=== PATIENT | female | born 1995 | race Caucasian/White ===

== ENCOUNTER 2020-04-03 12:23 | Outpatient (CLI) | payer SELFPAY ==
[2020-04-03 14:00] VITALS: BP 122/64; PULSE 87
[2020-04-03 14:01] LABS: Basophils Absolute Auto 0.1 K/mm3 (0.0-0.1); Basophils Percent Auto 0.8 % (0.2-1.2); Eosinophils Absolute Auto 0.1 K/mm3 (0-0.3); Eosinophils Percent Auto 0.8 % (0-4.4); Hematocrit 37.4 % (37.0-47.0); Hemoglobin 12.5 g/dL (12.0-15.0); Immature Granulocyte Absolute 0.46 K/mm3 (0.00-0.031); Immature Granulocyte Percent A 3.2 % (0-0.5); Lymphocytes Absolute Auto 1.66 K/mm3 (0.9-3.2); Lymphocytes Percent Auto 11.6 % (18.3-44.2); Mean Corpuscular HGB Conc 33.4 g/dl (32-36); Mean Corpuscular Hemoglobin 30.4 pg (26-34); Mean Platelet Volume 9.7 fl (7.4-10.4); Monocytes Absolute Auto 0.7 K/mm3 (0.1-0.6); Monocytes Percent Auto 5.1 % (2.6-8.5); Neutrophils Absolute Auto 11.2 K/mm3 (1.3-6.7); Neutrophils Percent Auto 78.5 % (45.5-73.1); Platelet Count Result 304 k/mm3 (150-375); Red Blood Count 4.11 M/mm3 (4.2-5.4); Red Cell Distribution Width 12.4 % (11.5-14.5); White Blood Count 14.3 K/mm3 (4.5-10.0)
[2020-04-03 14:09] LABS: Creatinine Urine 63.8 mg/dL; Total Protein Urine Random 15 mg/dL
[2020-04-03 14:13] LABS: Alanine Aminotransferase 12 U/L (4-35); Albumin Level 3.8 g/dL (3.5-5.1); Alkaline Phosphatase 128 U/L (38-126); Anion Gap 8 mmol/L (8-16); Aspartate Amino Transferase 15 U/L (14-36); Bilirubin,Total 0.3 mg/dL (0.2-1.3); Blood Urea Nitrogen 6 mg/dL (7-17); Calcium 9.6 mg/dL (8.4-10.2); Carbon Dioxide 27 mmol/L (22-30); Chloride 102 mmol/L (98-107); Estimated Glomerular Filt Rate > 60; Glucose 82 mg/dL (65-105); Sodium 137 mmol/L (137-145); Uric Acid 4.3 mg/dL (2.5-7.5)
[2020-04-03 14:15] VITALS: BP 124/67; PULSE 81
[2020-04-03 14:16] LABS: Add Urine Microscopic? YES; Appearance Urine Cloudy (Clear); Bacteria Urine 2+ /hpf; Bilirubin Urine Negative (Negative); Blood Urine Negative (Negative); Color Urine Yellow (Yellow); Glucose Urine UA Negative (Negative); Ketones Urine Negative (Negative); Leukocyte Esterase Ur 1+ LEU/UL (NEGATIVE); Mucus Urine Rare /lpf; Nitrate Urine Negative (Negative); Protein Urine Negative (Negative); RBC Urine 0-2 /hpf (0-2); Squamous Epithelial Cell Urine Few /hpf (Few); Urobilinogen Urine Negative mg/dL (<2.0); WBC Urine 0-3 /hpf (0-3)
[2020-04-03 14:30] VITALS: BP 125/65; PULSE 83
[2020-04-03 14:45] VITALS: BP 127/57; PULSE 83
--- NOTE | 2020-04-03 14:55 | PC.NURSE ---
Called VENKAT Cabrera with pt status. LAb results and BPs given. Tracing reactive. Informed of headache for 5 days. Significant other exposed to COVID, but not tested. Significant other has no symptoms. Pt states that she does not feel that she needs to be COVID tested. Pt may be D/C'd home.
[2020-04-17 10:45] VITALS: BP 116/78; PULSE 80
== END 2020-04-03 15:03 | disposition home or self-care (01) ==
LOC: ANHOBOP 13:47 → ANHOBPP 04-17 10:40
PROVIDERS: Visit Provider Obstetrics & Gynecology
DX: R51.9 Headache, unspecified (principal)
CPT/HCPCS: 36415; 59025; 80053; 81001; 82570; 84156; 84550; 85025; 87086; 87088; 99199

== ENCOUNTER 2020-04-13 16:01 | Outpatient (CLI) | payer OTHER, SELFPAY ==
[2020-04-13 16:46] VITALS: BP 138/73; PULSE 83
[2020-04-13 17:00] VITALS: BP 134/73; PULSE 82
[2020-04-13 17:16] VITALS: BP 128/71; PULSE 73
[2020-04-13 17:19] LABS: Basophils Absolute Auto 0.1 K/mm3 (0.0-0.1); Basophils Percent Auto 0.5 % (0.2-1.2); Eosinophils Absolute Auto 0.1 K/mm3 (0-0.3); Eosinophils Percent Auto 0.6 % (0-4.4); Hematocrit 34.2 % (37.0-47.0); Hemoglobin 11.9 g/dL (12.0-15.0); Immature Granulocyte Absolute 0.32 K/mm3 (0.00-0.031); Immature Granulocyte Percent A 2.5 % (0-0.5); Lymphocytes Absolute Auto 1.47 K/mm3 (0.9-3.2); Lymphocytes Percent Auto 11.4 % (18.3-44.2); Mean Corpuscular HGB Conc 34.8 g/dl (32-36); Mean Corpuscular Hemoglobin 31.1 pg (26-34); Mean Corpuscular Volume 89.3 fl (80-100); Mean Platelet Volume 9.7 fl (7.4-10.4); Monocytes Absolute Auto 0.7 K/mm3 (0.1-0.6); Monocytes Percent Auto 5.4 % (2.6-8.5); Neutrophils Absolute Auto 10.3 K/mm3 (1.3-6.7); Neutrophils Percent Auto 79.6 % (45.5-73.1); Platelet Count Result 291 k/mm3 (150-375); Red Blood Count 3.83 M/mm3 (4.2-5.4); Red Cell Distribution Width 12.5 % (11.5-14.5); White Blood Count 12.9 K/mm3 (4.5-10.0)
[2020-04-13 17:30] VITALS: BP 127/72; PULSE 82
[2020-04-13 17:32] LABS: Alanine Aminotransferase 12 U/L (4-35); Albumin Level 3.5 g/dL (3.5-5.1); Alkaline Phosphatase 127 U/L (38-126); Anion Gap 8 mmol/L (8-16); Aspartate Amino Transferase 14 U/L (14-36); Bilirubin,Total 0.2 mg/dL (0.2-1.3); Blood Urea Nitrogen 6 mg/dL (7-17); Calcium 9.6 mg/dL (8.4-10.2); Carbon Dioxide 25 mmol/L (22-30); Chloride 104 mmol/L (98-107); Estimated Glomerular Filt Rate > 60; Glucose 95 mg/dL (65-105); Potassium 3.8 mmol/L (3.4-5.0); Sodium 137 mmol/L (137-145); Uric Acid 4.5 mg/dL (2.5-7.5)
--- NOTE | 2020-04-13 17:37 | PC.NURSE ---
Called Brandi Greene CNM with lab results and BPs. October D/C home.
== END 2020-04-13 17:40 | disposition home or self-care (01) ==
LOC: ANHOBOP 16:15 → ANHOBPP 16:16
PROVIDERS: Advanced Practice Midwife; Visit Provider Obstetrics & Gynecology
DX: O13.9 Gestational [pregnancy-induced] hypertension without significant proteinuria, unspecified trimester (principal); Z3A.00 Weeks of gestation of pregnancy not specified
CPT/HCPCS: 36415; 59025; 80053; 84550; 85025; 99199

== ENCOUNTER 2020-04-17 06:29 | Inpatient (IN) | payer OTHER, SELFPAY ==
[2020-04-17] VITALS (233 sets, daily range): BP systolic 99–153; BP diastolic 46–97; PULSE 72–254; RESP 18–20; TEMP 36.4–38; O2SAT 94–100; BMI 41.4
[2020-04-17] MEDS: LACTATED RINGERS 1,000 ML 125 ML IV CONT ×4 (07:06→20:56)
[2020-04-17] MEDS: OXYTOCIN 30 UNITS/NS 500 ML 30 UNITS/500 ML BAG IV CONT (07:07)
[2020-04-17 07:09] LABS: Basophils Absolute Auto 0.1 K/mm3 (0.0-0.1); Basophils Percent Auto 0.5 % (0.2-1.2); Eosinophils Absolute Auto 0.1 K/mm3 (0-0.3); Eosinophils Percent Auto 0.9 % (0-4.4); Hematocrit 35.1 % (37.0-47.0); Hemoglobin 12.2 g/dL (12.0-15.0); Immature Granulocyte Absolute 0.43 K/mm3 (0.00-0.031); Immature Granulocyte Percent A 2.9 % (0-0.5); Lymphocytes Absolute Auto 2.05 K/mm3 (0.9-3.2); Mean Corpuscular HGB Conc 34.8 g/dl (32-36); Mean Corpuscular Hemoglobin 30.5 pg (26-34); Mean Corpuscular Volume 87.8 fl (80-100); Mean Platelet Volume 9.6 fl (7.4-10.4); Monocytes Absolute Auto 0.8 K/mm3 (0.1-0.6); Monocytes Percent Auto 5.2 % (2.6-8.5); Neutrophils Absolute Auto 11.2 K/mm3 (1.3-6.7); Neutrophils Percent Auto 76.5 % (45.5-73.1); Platelet Count Result 294 k/mm3 (150-375); Red Cell Distribution Width 12.6 % (11.5-14.5); White Blood Count 14.6 K/mm3 (4.5-10.0)
--- NOTE | 2020-04-17 07:22 | LDADM ---
This patient, Geronimo Cavanaugh, was admitted to Labor/Delivery/Recovery 103 on 04/17/20 at 06:29. Plans for labor, pain management and were discussed with patient. Patient/family oriented to hospital policies and general routines including ID bracelet, bed and alarms, visiting hours, pain management, procedures, bathroom and other care routines, personal items, smoking policy, room service/diet and guest tray routines, security routines, and visiting hours. Patient/Family are encouraged to report perceived risks to care and to ask questions if they do not understand what they are told or what they should do. See OBIX for further documentation.
--- NOTE | 2020-04-17 07:29 | WPDOBADMIT ---
Obstetrics - Admit Note Admission Note: record reviewed. No pertinent additions to the history and/or any subsequent changes in the physical findings that are not consistent with the expected course of the were found. term gestation, here for induction of labor, sve 250/-3 arom minimal amount of clear odorless fluid Additions to the history and/or subsequent changes in the physical findings follow. None.
--- NOTE | 2020-04-17 11:57 | WPDANESEPPF ---
Anes - Initial Pre Proc Eval Date/Time: 04/17/20 11:57 Surgeon: Isha Aldana MD Pre Op Diagnosis: induction Patient Data Age: 24 Gender: F Height: 1.65 m Weight: 113 kg Last Vital Signs Temp 36.8 C 04/17/20 11:00 Pulse 75 04/17/20 11:45 BP 143/58 H 04/17/20 11:45 Pulse Ox 100 04/17/20 11:55 Allergies Allergy/AdvReac Type Severity Reaction Status Date / Time Sulfa (Sulfonamide Allergy Unknown Blisters Verified 03/22/20 15:40 Antibiotics) adhesive tape Allergy Blister Verified 03/22/20 15:40 Home Medications Medication Instructions Recorded Confirmed Type PNV cmb#95-ferrous fumarate-FA 1 tablet PO DAILY 03/22/20 03/22/20 History [] iyooqammkq-tduumrmwwrhfu-kozn 1 cap PO Q6H PRN 03/22/20 03/22/20 History cyclobenzaprine 5 mg PO HS PRN 03/22/20 03/22/20 History levothyroxine 75 mcg PO DAILY 03/22/20 03/22/20 History triamcinolone-emollient comb45 applic TOPICAL 03/22/20 History Laboratory Tests 04/17/20 04/17/20 04/17/20 07:02 07:02 07:02 WBC 14.6 K/mm3 H K/mm3 (4.5-10.0) RBC 4.00 M/mm3 L M/mm3 (4.2-5.4) Hgb 12.2 g/dL g/dL (12.0-15.0) Hct 35.1 % L % (37.0-47.0) MCV 87.8 fl fl (80-100) MCH 30.5 pg pg (26-34) MCHC 34.8 g/dl g/dl (32-36) RDW 12.6 % % (11.5-14.5) Plt Count 294 k/mm3 k/mm3 (150-375) MPV 9.6 fl fl (7.4-10.4) Immature Gran % (Auto) 2.9 % H % (0-0.5) Neut % (Auto) 76.5 % H % (45.5-73.1) Lymph % (Auto) 14.0 % L % (18.3-44.2) [place] % (Auto) 5.2 % % (2.6-8.5) Eos % (Auto) 0.9 % % (0-4.4) Baso % (Auto) 0.5 % % (0.2-1.2) Lymph # (Auto) 2.05 K/mm3 K/mm3 (0.9-3.2) [place] # (Auto) 0.8 K/mm3 H K/mm3 (0.1-0.6) Eos # (Auto) 0.1 K/mm3 K/mm3 (0-0.3) Baso # (Auto) 0.1 K/mm3 K/mm3 (0.0-0.1) Abs Immat Gran (auto) 0.43 K/mm3 H K/mm3 (0.00-0.031) Absolute Neuts (auto) 11.2 K/mm3 H K/mm3 (1.3-6.7) Absolute Nucleated RBC 0.0 K/mm3 K/mm3 (0.0-0.012) Nucleated RBC % 0.0 % % (0.0-0.2) RPR Pending Blood Type B Positive Antibody Screen Negative Patient hx anesthesia problems: none Family hx anesthesia problems: none PMFSH Past Medical History Medical History (Updated 04/17/20 @ 11:57 by Real Berumen MD) Obesity Family History Family History (Updated 03/22/20 @ 15:44 by Jayna Guido RN) Mother Thyroid disease Hypertension Father Heart attack Social History Social History Smoking status: Never smoker Second hand tobacco smoke exposure: No Substance use: never Gender identity (if verbalized by the patient): Female Spiritual care concerns: No Anes - Eval Final PreProcedure Day of Procedure 04/17/20 11:57 Patient weight: obese Heart: regular rate and rhythm Lungs: clear to auscultation and normal air movement Airway: Mallampati scale class II Neurological: alert and oriented Last oral intake: >/= 8 hours ASA classification: II Emergent: no Anesthetic plan: proceed Anesthesia type and monitoring: regional epidural Informed Consent: The patient's anesthetic plan and its attendant risks and benefits were discussed with the patient/family/POA. Questions were solicited and answers provided to the satisfaction of the patient/family/POA.
[2020-04-17] MEDS: AMPICILLIN 2 GM/NS 100 ML 2 GM/100 ML BAG IVPB (19:49)
[2020-04-17] MEDS: SODIUM CHLORIDE 0.9% IV 300 ML 600 ML I-UTERINE (20:43)
[2020-04-17] MEDS: AMPICILLIN 1 GM/NS 50 ML 1 GM/50 ML BAG IVPB (23:47)
[2020-04-18] VITALS (52 sets, daily range): BP systolic 120–156; BP diastolic 42–112; PULSE 80–152; RESP 16–20; TEMP 36.6–37.7; O2SAT 92–100
--- NOTE | 2020-04-18 01:50 | PM.OBPRVD ---
OB - Delivery Note Procedure Delivery date: 04/18/20 Intrapartal events: Febrile Induction method: AROM and per pitocin protocol Delivery monitor: external FHT and internal uterine Route of delivery: Episiotomy description: None Laceration Description: Perineal - 2nd Degree Delivery repair: vicryl Specimen: No Estimated blood loss (mL): 315 Anesthesia type: Epidural Disposition: other () [place] Baby Date of : 04/18/20 Time of : 01:18 Weeks of gestation at delivery: 40 Infant gender: Male presentation: vertex position: Left Occiput Anterior Placenta delivery description: Spontaneous cord vessel description: 3 Vessels, Nuchal Cord, Loose, Reduced, Clamped/Cut and Delayed Cord Clamping score one minute: 8 score five minutes: 9 Narrative: Mother and baby in stable condition and skin to skin.
[2020-04-18] MEDS: OXYTOCIN 30 UNITS/NS 500 ML 30 UNITS/500 ML BAG 125 UNITS IV CONT (01:51)
[2020-04-18] MEDS: BENZOCAINE 20% AER SPR (*SP) 56 GM CAN 1 SPRAY TOPICAL (03:38)
[2020-04-18] MEDS: WITCH HAZEL 40 PADS 1 PAD TOPICAL (03:38)
[2020-04-18] MEDS: ACETAMINOPHEN 325 MG TABLET 650 MG PO (05:08)
--- NOTE | 2020-04-18 05:11 | PC.NURSE ---
This patient, Geronimo Cavanaugh, was received from Labor & Delivery on 04/18/20 at 0441. Patient/family oriented to unit policies and routines
[2020-04-18] MEDS: IBUPROFEN 600 MG TABLET PO ×2 (06:55→14:37)
[2020-04-18 07:35] LABS: Rapid Plasma Reagin Non-Reactive (NonReactive)
[2020-04-18] MEDS: MULTIVIT/MIN/PREN/FOL AC/IRON TABLET 1 TAB PO (09:21)
[2020-04-18] MEDS: DOCUSATE SODIUM 100 MG CAPSULE PO (09:22)
--- NOTE | 2020-04-18 09:45 | PC.NURSE ---
Consulted with patient, mother reports slight discomfort with feeding. Both nipples are tender, skin is reddened on left. Nipple care reviewed. Reviewed feeding cues, frequencies, duration of feedings, feeding elimination flow sheet, and signs of adequate intake. Demonstrated stimulation techniques to wake for feeding. Assisted with to breast. Reviewed positioning/alignment in cross cradle, holding breast in U hold and guided asymmetrical latch on. was able to latch correctly. nursed eagerly, with steady draws and frequent swallowing noted. Reviewed signs of a correct latch, effective nursing and suck swallow ratio. Infant was able to maintain latch without discomfort to mother. Mother reports infant has not been latched this deeply. Suggested mother stimulate while feeding to keep infant awake and nursing effectively for increased intake and to assist with maintaining deep latch. Instructed mother to call out for RN assistance if she is unable to latch infant for feeding or she has discomfort with nursing. Instructed feeding should be initiated three hours from start of l
--- NOTE | 2020-04-18 13:40 | PC.NURSE ---
Mother called out for assist with feeding. infant eagerly fed for first feeding. Reviewed feeding cues, frequencies, duration of feedings, feeding elimination flow sheet, and signs of adequate intake. Demonstrated stimulation techniques to wake for feeding. Assisted with to breast. Reviewed positioning/alignment in cross cradle, holding breast in U and guided asymmetrical latch on. Infant was able to latch correctly. nursed eagerly, with steady draws and frequent swallowing noted. Reviewed signs of a correct latch, effective nursing and suck swallow ratio. Infant was able to maintain latch without discomfort to mother. Nipple care reviewed. Suggested mother stimulate infant while feeding to keep awake and nursing effectively for increased intake and to assist with maintaining deep latch. Instructed mother to call out for RN assistance if she is unable to latch for feeding or she has discomfort with nursing. Instructed feeding should be initiated three hours from start of last feeding or if feeding cues are noted before. Mother voiced understanding of information shared.
[2020-04-19] MEDS: IBUPROFEN 600 MG TABLET PO ×2 (00:52→08:41)
[2020-04-19 05:52] LABS: Hematocrit 28.5 % (37.0-47.0); Hemoglobin 9.6 g/dL (12.0-15.0)
--- NOTE | 2020-04-19 07:55 | PM.OBPNVD ---
OB - PN: Subj Subjective Date/time seen: 04/19/20 07:55 Patient comments: no complaints baby status: doing well OB - PN: Obj Data Labs CBC & Chem 7: 04/19/20 05:40 Labs: Laboratory Results - last 24 hr 04/19/20 05:40 Hgb 9.6 L Hct 28.5 L OB - PN A/P Plan day: 1 Plan: routine care and discharge home (RTC 4 weeks) Time Spent With Patient Time: Total time spent is greater than 50% in coordination of care (as documented) at patient's floor/unit and/or counseling patient: Time with patient: less than 15 minutes Review of Systems Review of Systems: All systems reviewed & are unremarkable except as noted in HPI and below Exam Narrative: Exam Narrative: Fundus firm and vaginal flow controlled. No lower ext redness, warmth, or edema. Negative homans. Const: General: comfortable Chest: Breast/axilla inspection: normal inspection of the breasts Resp: Effort & Inspection: normal respiratory effort Cardio: Rate: regular rate GI: GI Palp: Yes Soft to palpation Psych: Appearance: grossly normal Affect: normal affect Attitude: cooperative Thought content: Yes Normal thought content present Judgement: Good judgement present (Psych)
--- NOTE | 2020-04-19 07:59 | P.DS_ITS ---
DS: Admitting Diagnosis Admitting Diagnosis Admitting Diagnosis: induction DS: Discharge Diagnosis Discharge Diagnosis (1) Vaginal delivery: Code(s): O80 - Encounter for full-term uncomplicated delivery Status: Acute OB - DS: Summary OB Procedures : None OB Procedures Intrapartum: Spontaneous Vag Delivery OB Procedures: : None Time Spent with Patient Time attestation: Total time spent providing and/or coordinating discharge services: DS: Data Data Completed and Pending Pending studies at discharge: Pending at discharge 04/18/20 01:27 Surgical [PTH] Routine Labs on day of discharge: Labs from last 24 hours 04/19/20 05:40 Hgb 9.6 L Hct 28.5 L Discharge Plan Discharge Attending physician on discharge: Lovely Greene Discharging Clinician: Anjelica Loco Patient Disposition: Home, Self-Care Activity: pelvic rest Diet: as tolerated Patient Instructions: Antibiotic Form Stand Alone Forms: General Discharge Information Follow-up/Referrals: Lovely Greene, CNM [Certified Nurse Studio Designer] - Discharge Medications: Continued PNV cmb#95-ferrous fumarate-FA [] 28 mg iron- 800 mcg Tablet 1 tablet PO DAILY RF: 0 levothyroxine 75 mcg Tablet 75 mcg PO DAILY RF: 0 Discontinued cyclobenzaprine 5 mg Tablet 5 mg PO HS PRN (Reason: Headache) RF: 0 vodqcravzf-nbstswozdprdh-apqa 50-300-40 mg Capsule 1 cap PO Q6H PRN (Reason: Headache) RF: 0 triamcinolone-emollient comb45 0.1 % Cream TOPICAL RF: 0 Date of admission: 04/17/20 06:29 Primary Care Provider: PHYSICIAN,CONTINUOUS PROCESS COFFEE ROASTER Admitting Provider: Isha Aldana Attending physician on admission: Isha Aldana
[2020-04-19 08:00] VITALS: BP 126/62; PULSE 74; RESP 18; TEMP 36.9
--- NOTE | 2020-04-19 08:30 | PC.NURSE ---
Patient viewed the discharge video Mother & Baby Care, The First Two Weeks . Patient was given the opportunity and encouraged to ask questions. Patient verbalized understanding of information shared and has been given the mother/baby guide for home reference.
[2020-04-19] MEDS: MULTIVIT/MIN/PREN/FOL AC/IRON TABLET 1 TAB PO (08:40)
[2020-04-19] MEDS: WITCH HAZEL 40 PADS 1 PAD TOPICAL (08:40)
[2020-04-19] MEDS: DOCUSATE SODIUM 100 MG CAPSULE PO (08:40)
[2020-04-19] MEDS: BENZOCAINE 20% AER SPR (*SP) 56 GM CAN 1 SPRAY TOPICAL (08:40)
[2020-04-19] MEDS: POLYSACCHARIDE IRON COMPLEX 150 MG CAPSULE PO (08:41)
--- NOTE | 2020-04-19 09:46 | WPDANLDPN2 ---
Anes-Prog Note L&D Date/Time: 04/19/20 09:46 Comfortable throughout: labor and delivery Neuraxial method: epidural Epidural/Spinal procedure site: clean & non-tender Neuro status: Neuro function grossly intact. Cardiovascular status: normal Respiratory status: normal Airway patency: baseline Mental status: baseline Post-Op hydration status: normal Vital Signs: Last Vital Signs Temp 36.6 C 04/18/20 19:40 Pulse 80 04/18/20 19:40 Resp 16 04/18/20 19:40 BP 124/68 04/18/20 19:40 Pulse Ox 99 04/18/20 07:40 Pain score (VAS): 0 Post-procedural complaints: none Patient feedback: Patient satisfied with anesthetic care.
--- NOTE | 2020-04-19 11:02 | PC.NURSE ---
Self care and infant care discharge instructions given to parents including follow up visit date and time. Mother verbalized understanding. No questions or concerns voiced.
--- NOTE | 2020-04-19 12:05 | PC.NURSE ---
Consulted with patient, mother reports tenderness with feedings and struggles with latching. Both nipples are reddened and bruising is noted to right areola from incorrect latch. Assisted with infant to breast. Reviewed positioning/alignment in cross cradle, holding breast in U hold and guided asymmetrical latch on. Infant does not open wide and is unable to latch deeply. Mother is not able to adjust latch more deeply while feeding. Discussed a nipple shield and how this may assist with latch and mother's tenderness with feeding. Discussed nipple shield precautions and possible complications. Instructions given on application and cleaning of shield. Patient able to return demonstration on proper application of shield. Discussed the need to initiate pumping if infant continues to nurse with the shield. Patient verbalizes understanding. Using cross cradle and holding breast in U hold, was able to latch correctly. nursed eagerly, with steady draws and frequent swallowing noted. Reviewed signs of a correct latch, effective nursing and suck swallow ratio. was able to maintain latch without discomfort to mother. Nipple care reviewed. Advised mother she should pump after each feeding using the nipple shield. Mother dooley a double electric pump for home use and will initiate pumping once home. Mother states she would like to initiate supplementation after some feedings if she feels infant is not satisfied. Discussed to start with 20mls reviewing paced feeding. Mother plans on discharge later this afternoon. Mother is feeding as required and waking infant to feed if needed. Infant is currently meeting outcomes for weight, output, jaundice and feeding frequencies. Mother states she feels confident to continue current feeding plan above at home. Reviewed transition to breast milk, signs of adequate intake, and engorgement/relief. Instructed to call ICP if intake/output less than required. Reviewed regular medications mother is taking. Information provided per Karmen. Reviewed community resources on the [employer] website and in the Mom/Baby guide. Information on outpatient services provided. Mother has no further questions at this time.
[2020-04-20 11:35] VITALS: BP 134/68; PULSE 84; RESP 20; O2SAT 100
== END 2020-04-19 14:32 | disposition home or self-care (01) | DRG 806 ==
LOC: ANHLDR 08:31 → ANHOB2 04-18 04:50
PROVIDERS: Advanced Practice Midwife; Admitting Provider Obstetrics & Gynecology; Visit Provider Obstetrics & Gynecology
DX: O99.214 Obesity complicating childbirth (principal); O75.2 Pyrexia during labor, not elsewhere classified; Z37.0 Single live birth; Z3A.40 40 weeks gestation of pregnancy; E66.9 Obesity, unspecified; O70.1 Second degree perineal laceration during delivery; O69.81X0 Labor and delivery complicated by cord around neck, without compression, not applicable or unspecified
CPT/HCPCS: 36415; 85014; 85018; 85025; 86592; 86850; 86900; 86901; 88307; A9270; J0131; J0290; J2590; J2795; J7030; J7120

== ENCOUNTER 2020-05-15 14:34 | Outpatient (RCR) | payer OTHER, SELFPAY ==
--- NOTE | 2020-05-15 15:03 | PC.NURSE ---
IN 1330 OUT 1430 HISTORY: Pt. delivered at [facility] at 40 weeks. had no complications after delivery. Mother had no complications after delivery. is now 3 weeks and 4 days old. Infant appears to be well cared for. Infant has been seen by ICP as scheduled. last seen by ICP on 04/30/2020. Infant has appt with ICP on 05/18/2020. Mother reports: She has pain in left nipple when is at breast. Mother wishes: To have help with obtaining a deep latch. Currently at 6-8 wets per day and 6-8 yellow seedy stools per day. weight: 6-15 Last Weight: 6-13 on 04-30-2020 Pre feeding weight: 3355 Post feeding weight: 3381 OBSERVATION: Mother puts to breast in cradle position. Infant attempts to latch onto the breast 2-3 times. Infant attaches with shallow latch slowly pulling more nipple into its mouth. Assisted mom to break the suction and attach once wide open mouth was obtained. Infant latched well with assistance. Mom stated that there was no pain after the deeper latch. Educated mom to keep infant in tight to her and give some resistance to keep from pulling back and sliding back down to the nipple. Reviewed with mom how to roll more nipple into the infant's mouth while feeding and to break the suction if is pulling away with breast. Mom states that infant has been cluster feeding often, wanting to feed every hour for the last 1.5 weeks and isn't content after most feedings. Reviewed pre and post weights with mom and talked to her about trying to boost her milk supply with pumping after feedings. Offering the at least 30mls of breastmilk or formula post breastfeed up to what desires. PLAN: Mom will put infant to breast when infant desires at least ever 2-3 hours and then follow breastfeed with supplementation of breastmilk or formula. Mom will then pump for at least 10 minutes for most feedings. Mother will work on getting deeper latch and keeping infant in tight to the breast while feeding. Mother will call with further questions or concerns. Mom will keep scheduled peds appt.
== END 2020-05-18 09:09 | disposition home or self-care (01) ==
LOC: ANHOBOP 14:34
PROVIDERS: Visit Provider Pediatrics
DX: Z39.1 Encounter for care and examination of lactating mother (principal)
CPT/HCPCS: 99212; G0463

== ENCOUNTER 2022-04-21 23:30 | Emergency (ER) | payer OTHER, SELFPAY ==
--- NOTE | ~2022-04-21 | CT_ITS ---
EXAMINATION: CT brain wo con DATE: 04/22/2022 01:25 INDICATION: Blurred vision. TECHNIQUE: Computed tomography (CT) of the head was performed without intravenous contrast. The mA wa s adjusted according to patient size. Iterative reconstruction technique was employed. The dose-lengt h product was 529.67 mGy-cm. COMPARISON: None FINDINGS: There is no intracranial hemorrhage, acute infarction, or abnormal intracranial mass lesion . The ventricles are normal in size. The mastoid air cells are normal. The paranasal sinuses are larisa r. The orbits are normal. IMPRESSION: 1. Normal brain. Reviewed, dictated and finalized at location A. RAL SERVICE APPRENTICE IMPRESSION: 1. Normal brain.
[2022-04-21 23:33] VITALS: BP 132/101; PULSE 110; RESP 18; TEMP 36.9; O2SAT 100
--- NOTE | 2022-04-22 01:08 | ED.GENADULT ---
HPI - General Adult General Chief complaint: Unspecified Stated complaint: blurred vision since 1100 Time Seen by Provider: 04/22/22 00:43 History of Present Illness HPI narrative: This is a 26-year-old female with past medical history of migraines, who presents emergency department with blurred vision for the past day. She states approximately 14 hours ago, she had sudden onset peripheral blurred vision that has progressively worsened. She denies associated headaches, nausea, loss of vision, weakness or numbness. She states this is never happened before, she has no other complaints today. Related Data Home Medications Medication Instructions Recorded Confirmed levothyroxine 75 mcg tablet 75 mcg PO DAILY 03/22/20 03/22/20 vit no.95-ferrous 1 tablet PO DAILY 03/22/20 03/22/20 fumarate 28 mg-folic acid 800 mcg tablet () Allergies Allergy/AdvReac Type Severity Reaction Status Date / Time Sulfa (Sulfonamide Allergy Unknown Blisters Verified 03/22/20 15:40 Antibiotics) adhesive tape Allergy Blister Verified 03/22/20 15:40 Review of Systems Review of Systems: CONSTITUTIONAL: Denies fever, chills, or sweats. EYES: Blurred vision denies redness, or discharge. ENT: Denies rhinorrhea, congestion, sore throat, or otalgia. CARDIOVASCULAR: Denies chest pain, palpitations, or edema. RESPIRATORY: Denies cough or dyspnea. GASTROINTESTINAL: Denies abdominal pain, nausea, vomiting, or diarrhea. GENITOURINARY: Denies dysuria or hematuria. SKIN: Denies rash or itching. MUSCULOSKELETAL: Denies back pain, joint pain, or myalgia. NEUROLOGIC: Denies headache, numbness, dizziness, or weakness. PSYCHIATRIC: Denies anxiety or depression. [facility] Past Medical History Medical History Obesity Family History Family History Mother Thyroid disease Hypertension Father Heart attack Social History Social History (Updated 04/22/22 @ 01:11 by Migel Medina MD) Smoking status: Never smoker Second hand tobacco smoke exposure: No Alcohol intake: current Drinks per week: 1 Substance use: never Gender identity (if verbalized by the patient): Female Spiritual care concerns: No Exam Narrative: GENERAL: Well-developed, well-nourished, and in no acute distress. HEAD: Normocephalic, atraumatic. EYES: PERRLA and EOMI; funduscopic exam technically difficult, however there appears to be mild bilateral papilledema ENT: Nares clear, no rhinorrhea or epistaxis. Mucous membranes moist. Oropharynx without tonsillar hypertrophy exudate or other lesions. NECK: Supple. No adenopathy or masses. No carotid bruits or JVD CHEST: Clear to auscultation. No respiratory distress. No wheezes rales or rhonchi HEART: Regular rate and rhythm. No murmur heard. Normal peripheral pulses. ABDOMEN: Soft, nontender, nondistended, normal active bowel sounds. EXTREMITIES: Normal range of motion. No edema. SKIN: Warm, dry, no rash. NEURO: No focal deficits. Alert and oriented x3. PSYCH: Normal mood and affect. Course Course Emergency Course: 01:50 - CT head Statrad read negative for intracranial mass, hemorrhage, hydrocephalus or herniation. Bedside ocular ultrasound not concerning for retinal detachment or vitreous hemorrhage. Left optic nerve measures 4.5 mm, right optic nerve measures 4.2 mm. 03:50 - LP unsuccessful despite multiple attempts and ultrasound guidance. Discussed patient with underwear trimmer, Dr. Almanza at [facility] who accepts the patient for transfer. Discussed patient with ED physician, Dr. Grimaldo who also accepts transfer. Vital Signs Vital signs: Vital Signs Temperature 98.5 F 04/21/22 23:33 Pulse Rate 110 H 04/21/22 23:33 Respiratory Rate 18 04/21/22 23:33 Blood Pressure 132/101 H 04/21/22 23:33 Pulse Oximetry 100 04/21/22 23:33 Oxygen Delivery Room Air 04/21/22 23:33
[2022-04-22 01:55] VITALS: BP 159/78; PULSE 97; RESP 18; O2SAT 100
[2022-04-22 02:03] LABS: Basophils Percent Auto 0.3 % (0.2-1.2); Eosinophils Absolute Auto 0.1 K/mm3 (0-0.3); Hematocrit 42.6 % (37.0-47.0); Hemoglobin 14.5 g/dL (12.0-15.0); Immature Granulocyte Absolute 0.06 K/mm3 (0.00-0.031); Immature Granulocyte Percent A 0.4 % (0-0.5); Lymphocytes Absolute Auto 1.54 K/mm3 (0.9-3.2); Lymphocytes Percent Auto 10.8 % (18.3-44.2); Mean Corpuscular Hemoglobin 30.1 pg (26-34); Mean Corpuscular Volume 88.6 fl (80-100); Mean Platelet Volume 9.5 fl (7.4-10.4); Monocytes Absolute Auto 0.6 K/mm3 (0.1-0.6); Monocytes Percent Auto 4.3 % (2.6-8.5); Neutrophils Absolute Auto 11.9 K/mm3 (1.3-6.7); Neutrophils Percent Auto 83.2 % (45.5-73.1); Platelet Count Result 306 k/mm3 (150-375); Red Blood Count 4.81 M/mm3 (4.2-5.4); Red Cell Distribution Width 11.9 % (11.5-14.5); White Blood Count 14.3 K/mm3 (4.5-10.0)
[2022-04-22] MEDS: LORazepam (*CRX) 0.5 MG TABLET PO (02:10)
[2022-04-22 02:17] LABS: Alanine Aminotransferase 23 U/L (6-35); Albumin Level 4.6 g/dL (3.5-5.1); Alkaline Phosphatase 76 U/L (38-126); Anion Gap 11 mmol/L (8-16); Aspartate Amino Transferase 29 U/L (14-36); Bilirubin,Total 0.5 mg/dL (0.2-1.3); Blood Urea Nitrogen 10 mg/dL (7-17); Calcium 9.3 mg/dL (8.4-10.2); Carbon Dioxide 21 mmol/L (22-30); Chloride 107 mmol/L (98-107); Estimated CRCL calculation 109 ml/min; Estimated Glomerular Filt Rate > 60; Glucose 116 mg/dL (65-110); Potassium 4.2 mmol/L (3.4-5.0); Sodium 139 mmol/L (137-145)
--- NOTE | 2022-04-22 02:37 | PC.NURSE ---
Dr. Medina at bedside performing lumbar puncture at this time
[2022-04-22 04:42] LABS: SARS-CoV-2 RNA PCR Negative
[2022-04-22 05:27] VITALS: BP 152/74; PULSE 103; RESP 17; TEMP 36.5; O2SAT 100
[2022-04-22 06:39] VITALS: BP 152/74; PULSE 100; RESP 17; O2SAT 100
--- NOTE | 2022-04-22 06:43 | PC.NURSE ---
Patient sent to [facility] ED with IV in
== END 2022-04-22 06:43 | disposition short-term general hospital (02) ==
PROVIDERS: Emergency Provider Preventive Medicine Aerospace Medicine
DX: H53.8 Other visual disturbances (principal); Z20.822 Contact with and (suspected) exposure to COVID-19; E66.9 Obesity, unspecified; Z68.37 Body mass index [BMI] 37.0-37.9, adult
CPT/HCPCS: 36415; 62270; 70450; 80053; 81025; 85025; 99285; A9270; U0003; U0005

== ENCOUNTER → 2023-01-30 14:14 | Outpatient (CLI) | payer OTHER, SELFPAY ==
--- NOTE | ~2023-01-30 | XR_ITS ---
EXAMINATION: XR chest 2V 01/30/2023 14:32 INDICATION: Positive TB test PROCEDURE: 2 view chest COMPARISON: No prior studies for comparison. FINDINGS: The lungs are clear. The cardiomediastinal silhouette is within normal limits. There are no pleural effusions. There is no pneumothorax suspected. IMPRESSION: 1: NO ACUTE CARDIOPULMONARY DISEASE. Reviewed, dictated and finalized at location B.
== END ==
DX: R76.11 Nonspecific reaction to tuberculin skin test without active tuberculosis (principal)
CPT/HCPCS: 71046

== ENCOUNTER 2023-11-02 20:06 | Outpatient (CLI) | payer OTHER, SELFPAY | END 2023-11-02 20:58 | LOC: ANHOBOP 20:12 → ANHLDR 11-09 07:54 | PROVIDERS: PCP Family Medicine; Visit Provider Obstetrics & Gynecology | DX: O41.8X90 Other specified disorders of amniotic fluid and membranes, unspecified trimester, not applicable or unspecified (principal); Z3A.00 Weeks of gestation of pregnancy not specified | CPT/HCPCS: 84112; 99199 ==

== ENCOUNTER 2023-11-02 20:56 | Observation (INO) | payer OTHER, SELFPAY ==
[2023-11-02 20:59] VITALS: BP 119/71; PULSE 101; RESP 18; TEMP 36.8; O2SAT 98
[2023-11-02 22:07] LABS: Basophils Percent Auto 0.3 % (0.2-1.2); Eosinophils Absolute Auto 0.3 K/mm3 (0-0.3); Eosinophils Percent Auto 2.6 % (0-4.4); Hematocrit 37.3 % (37.0-47.0); Hemoglobin 12.8 g/dL (12.0-15.0); Immature Granulocyte Absolute 0.09 K/mm3 (0.00-0.031); Immature Granulocyte Percent A 0.8 % (0-0.5); Lymphocytes Absolute Auto 0.71 K/mm3 (0.9-3.2); Lymphocytes Percent Auto 5.9 % (18.3-44.2); Mean Corpuscular HGB Conc 34.3 g/dl (32-36); Mean Corpuscular Hemoglobin 30.3 pg (26-34); Mean Corpuscular Volume 88.4 fl (80-100); Mean Platelet Volume 9.2 fl (7.4-10.4); Monocytes Absolute Auto 0.6 K/mm3 (0.1-0.6); Monocytes Percent Auto 5.2 % (2.6-8.5); Neutrophils Absolute Auto 10.2 K/mm3 (1.3-6.7); Neutrophils Percent Auto 85.2 % (45.5-73.1); Platelet Count Result 297 k/mm3 (150-375); Red Blood Count 4.22 M/mm3 (4.2-5.4); Red Cell Distribution Width 12.2 % (11.5-14.5)
[2023-11-02 22:19] LABS: Alanine Aminotransferase 23 U/L (6-35); Albumin Level 3.9 g/dL (3.5-5.1); Alkaline Phosphatase 73 U/L (38-126); Anion Gap 6 mmol/L (4-12); Aspartate Amino Transferase 16 U/L (14-36); Bilirubin,Total 0.6 mg/dL (0.2-1.3); Blood Urea Nitrogen 3 mg/dL (7-17); Calcium 9.2 mg/dL (8.4-10.2); Carbon Dioxide 22 mmol/L (22-30); Chloride 107 mmol/L (98-107); Estimated CRCL calculation 134 ml/min; Estimated Glomerular Filt Rate > 60; Glucose 100 mg/dL (65-110); Lipase 56 U/L (23-300); Potassium 3.7 mmol/L (3.4-5.0); Sodium 135 mmol/L (137-145)
[2023-11-02 22:40] LABS: Appearance Urine Cloudy (Clear); Bacteria Urine 3+ /hpf; Bilirubin Urine 1+ (Negative); Blood Urine Negative (Negative); Color Urine Dark Yellow (Yellow); Glucose Urine UA Negative (Negative); Ketones Urine 4+ mg/dL (Negative); Leukocyte Esterase Ur 2+ LEU/UL (Negative); Need Manual Microscopic Reviewed; Nitrate Urine Negative (Negative); Protein Urine 1+ mg/dL (Negative); Specific Grav Ur 1.027 (1.001-1.035); Squamous Epithelial Cell Urine Moderate /hpf (Few); WBC Urine 21-50 /hpf (0-3)
[2023-11-02 22:43] LABS: Add Urine Microscopic? YES
--- NOTE | 2023-11-02 22:44 | ED.NAVMDI ---
HPI - Nausea/Vomiting/Diarrhea General Chief complaint: Nausea/Vomiting/Diarrhea <Neetu Do PA-C - Last Filed: 11/03/23 00:08> Stated complaint: Sent for fluids per PCP, 13.5 weeks , N/V <Neetu Do PA-C - Last Filed: 11/03/23 00:08> Time Seen by Provider: 11/02/23 21:50 <Neetu Do PA-C - Last Filed: 11/03/23 00:08> History of Present Illness HPI Narrative: 28-year-old female, who is currently 13 and half weeks presents to the emergency department for nausea and vomiting. Patient states she has been nauseous the past 8 weeks, however today she has been having difficulty keeping things down. She endorses a cough for the past couple of days. Denies sore throat or otalgia. States today she spiked a fever, T-max is on O2. She took Tylenol around 730 but then vomited shortly after. She called her OB GYNs office, Dr. Aldana, and was advised to come to the ED for further evaluation. She did go to Labor and delivery today and had heart tones checked which were 13.5. While there she coughed so hard she urinated. States they checked to ensure this was not amniotic fluids which she said was not. She denies dysuria, abdominal pain. She is prescribed ODT Zofran by her OBGYN. States she takes this and sometimes it provides improvement. She has not taken any today. <Neetu Do PA-C - Last Filed: 11/03/23 00:08> Related Data Home medications: Home Medications Medication Instructions Recorded Confirmed levothyroxine 50 mcg tablet 50 mcg PO DAILY 11/03/23 11/03/23 ondansetron HCl 4 mg tablet 4 mg PO Q6H PRN Nausea And Vomiting 11/03/23 11/03/23 <DEANN Johnson Last Filed: 11/03/23 00:08> Allergies/Adverse reactions: Allergies Allergy/AdvReac Type Severity Reaction Status Date / Time topiramate [From Topamax] Allergy Intermediate Unknown Verified 03/02/23 14:04 Sulfa (Sulfonamide Allergy Unknown Blisters Verified 03/02/23 14:04 Antibiotics) adhesive tape Allergy Blister Verified 03/02/23 14:04 metformin AdvReac Mild Diarrhea Verified 03/02/23 14:04 <Neetu Do PA-C - Last Filed: 11/03/23 00:08> Review of Systems Review of Systems: CONSTITUTIONAL: See HPI EYES: Denies visual changes, redness, or discharge. ENT: Denies rhinorrhea, congestion, sore throat, or otalgia. CARDIOVASCULAR: Denies chest pain, palpitations, or edema. RESPIRATORY: See HPI GASTROINTESTINAL: Denies abdominal pain, nausea, vomiting, or diarrhea. GENITOURINARY: Denies dysuria or hematuria. SKIN: Denies rash or itching. MUSCULOSKELETAL: Denies back pain, joint pain, or myalgia. NEUROLOGIC: Denies headache, numbness, dizziness, or weakness. PSYCHIATRIC: Denies anxiety or depression. <Neetu Do PA-C - Last Filed: 11/03/23 00:08> [facility] Past Medical History Medical History: Medical History Anxiety BMI 32.0-32.9,adult Obesity <Neetu Do PA-C - Last Filed: 11/03/23 00:08> Family History Family History: Family History Mother Thyroid disease Hypertension Father Heart attack A-fib Other Alcohol abuse Depression Heart disease <Neetu Do PA-C - Last Filed: 11/03/23 00:08> Social History Social History: Social History Smoking status: Never smoker Second hand tobacco smoke exposure: No Alcohol intake: never Drinks per week: 1 Substance use: never Substance use type: does not use Do You Feel Safe in your Home?: Yes Lack of Transportation: No Lack of Food: Never True Current Housing: I Have Housing Concerned About Future Housing: No Difficulty Paying Gas/Electric Bills: No Difficulty Paying for Meds: No Currently Unemployed: No Education: Bachelor's Degree Difficulty w/ Childcare or F
[2023-11-02] MEDS: SODIUM CHLORIDE 0.9% IV 1,000 ML 999 ML IV CONT ×2 (23:03→23:53)
[2023-11-02] MEDS: ONDANSETRON INJ 4 MG/2 ML VIAL IV PUSH (23:34)
[2023-11-02 23:36] LABS: Influenza A QL RT-PCR Negative (Negative); Influenza B QL RT-PCR Negative (Negative); SARS-CoV-2 RNA PCR Negative (Negative)
[2023-11-03] MEDS: SODIUM CHLORIDE 0.9% IV 1,000 ML 100 ML IV CONT (00:33)
[2023-11-03 01:26] VITALS: BP 146/67; PULSE 97; RESP 18; TEMP 36.4; O2SAT 100; BMI 34.0
--- NOTE | 2023-11-03 01:30 | ADMGEN ---
This patient, Geronimo Cavanaugh, was admitted to [facility] Surg Room 301-01. Patient/family oriented to hospital policies and general routines including ID bracelet, bed and alarms, visiting hours, pain management, procedures, bathroom and other care routines, personal items, smoking policy, room service/diet, and visiting hours. Information on how to activate the Rapid Response Team has been discussed. Patient/Family are encouraged to report perceived risks to care and to ask questions if they do not understand what they are told or what they should do.
[2023-11-03 05:09] VITALS: BP 108/53; PULSE 84; RESP 17; TEMP 36.3; O2SAT 98
--- NOTE | 2023-11-03 09:24 | PM.IMHP ---
H&P: [facility] History of Present Illness Date/Time: 11/03/23 09:24 Chief Complaint: fever, flank pain Narrative: 28-year-old female who is 14 weeks gestation presented emergency department with right flank pain and fever. She measured a fever 102 At home. She was admitted through the emergency department for IV antibiotics and observation. She feels better after IV antibiotics. Fevers been appreciated here at the hospital. She denies any nausea, vomiting. She denies any chest pain shortness of breath. She denies any vaginal bleeding, cramping, loss of fluid. Review of Systems Review of Systems: All systems reviewed & are unremarkable except as noted in HPI and below Constitutional: Constitutional: Denies chills, Denies fatigue, Denies fever(s) and Denies weakness Eyes: Eyes: Denies blurry vision, Denies change in vision, Denies loss of peripheral vision, Denies loss of vision, Denies other visual disturbances and Denies eye pain ENT: Denies vertigo, Denies dizziness, Denies hearing loss, Denies mouth pain, Denies nasal obstruction, Denies neck mass and Denies neck pain Cardiovascular: Cardiovascular: Denies chest pain, Denies diaphoresis, Denies syncope, Denies leg edema and Denies dyspnea Respiratory: Respiratory: Denies chest congestion, Denies cough, Denies hemoptysis, Denies dyspnea and Denies wheezing Gastrointestinal: Gastrointestinal: Denies abdominal pain, Denies constipation, Denies diarrhea, Denies nausea and Denies vomiting Genitourinary: Genitourinary: Denies hematuria, Denies change in libido, Denies nocturia, Denies genital lesions, Denies flank pain and Denies urinary urgency Musculoskeletal: Musculoskeletal: Denies abnormal gait, Denies back pain, Denies myalgias, Denies arthralgias, Denies joint swelling, Denies muscle weakness and Denies neck pain Integumentary/Breasts: Skin/Breast: Denies swelling, Denies breast pain, Denies breast mass, Denies dry skin, Denies nipple discharge, Denies unusual bruising and Denies jaundice Neurologic: Denies Neuro-related abnormal movements, Denies Abnormal speech present, Denies abnormal gait, Denies behavioral changes, Denies confusion, Denies vertigo, Denies dizziness, Denies syncope, Denies loss of vision, Denies memory loss, Denies convulsions and Denies weakness Psychiatric: Psychiatric: Denies abnormal sleep pattern, Denies behavioral changes, Denies change in libido, Denies confusion, Denies depression, Denies anhedonia and Denies memory loss Endocrine: Endocrine: Reports no additional endocrine complaints, Denies change in libido and Denies fatigue Hematologic/Lymphatic: Hematologic/Lymphatic: Reports no additional hematologic/lymphatic complaints Allergic/Immunologic: Allergic/Immunologic: Reports no additional allergic/immunologic complaints and Denies wheezing PMFSH Past Medical History Medical History Anxiety BMI 32.0-32.9,adult Obesity Family History Family History Mother Thyroid disease Hypertension Father Heart attack A-fib Other Alcohol abuse Depression Heart disease Social History Social History Smoking status: Never smoker Second hand tobacco smoke exposure: No Alcohol intake: never Drinks per week: 1 Substance use: never Substance use type: does not use Do You Feel Safe in your Home?: Yes Lack of Transportation: No Lack of Food: Never True Current Housing: I Have Housing Concerned About Future Housing: No Difficulty Paying Gas/Electric Bills: No Difficulty Paying for Meds: No Currently Unemployed: No Education: Bachelor's Degree Difficulty w/ Childcare or Family Care: No Living arrangements: with family Gender identity (if verbalized by the patient): Female Spiritual care concerns: No Meds Home Medications and Allergies
--- NOTE | 2023-11-25 18:02 | PM.DS ---
DS: Admitting Diagnosis Discharge Date 11/03/23 Admitting Diagnosis pyelonephritis DS: Discharge Diagnosis Discharge Diagnosis (1) Pyelonephritis affecting : Qualifiers: Trimester: second trimester Qualified Code(s): O23.02 - Infections of kidney in , second trimester Code(s): O23.00 - Infections of kidney in , unspecified trimester Status: Acute DS: Summary Hospital Course Hospital Course: 28-year-old female, , presented the ER with symptoms of pyelonephritis. Some of her evaluation suggested pyelonephritis. She was admitted for observation. She received multiple doses of antibiotics and then was discharged home. Time Spent with Patient Time attestation: Total time spent providing and/or coordinating discharge services: Discharge Plan Discharge Discharging Clinician: Tramaine Aldana Patient Disposition: Home, Self-Care Activity: pelvic rest Diet: regular Patient Instructions: Antibiotic Form, Kidney Infection (DC) Stand Alone Forms: General Discharge Information Follow-up/Referrals: Tramaine Aldana MD [Physician] - Discharge Medications: Continued ondansetron HCl 4 mg tablet 4 mg PO Q6H PRN (Reason: Nausea And Vomiting) levothyroxine 50 mcg tablet 50 mcg PO DAILY Date of admission: 11/03/23 00:07 Primary Care Provider: Julien España Admitting Provider: Tramaine Aldana Attending physician on admission: Tramaine Aldana Condition: Stable
== END 2023-11-03 11:10 | disposition home or self-care (01) ==
LOC: ANHED 11-03 00:07 → ANH3MEDSUR 11-03 00:45
PROVIDERS: Admitting Provider Obstetrics & Gynecology; Emergency Provider Physician Assistant; PCP Family Medicine; Referring Provider Obstetrics & Gynecology; Visit Provider Obstetrics & Gynecology
DX: O23.02 Infections of kidney in pregnancy, second trimester (principal); Z3A.14 14 weeks gestation of pregnancy; Z20.822 Contact with and (suspected) exposure to COVID-19
CPT/HCPCS: 36415; 80053; 81001; 81025; 83690; 84112; 85025; 87086; 87088; 87636; 96361; 96365; 96375; 99199; 99285; G0378; J0696; J2405; J7030

== ENCOUNTER 2024-04-19 13:42 | Outpatient (CLI) | payer OTHER, SELFPAY ==
[2024-04-19 14:12] LABS: Basophils Absolute Auto 0.1 K/mm3 (0.0-0.1); Basophils Percent Auto 0.5 % (0.2-1.2); Eosinophils Absolute Auto 0.1 K/mm3 (0-0.3); Eosinophils Percent Auto 0.8 % (0-4.4); Hematocrit 35.6 % (37.0-47.0); Hemoglobin 11.9 g/dL (12.0-15.0); Immature Granulocyte Absolute 0.36 K/mm3 (0.00-0.031); Immature Granulocyte Percent A 2.5 % (0-0.5); Lymphocytes Absolute Auto 1.84 K/mm3 (0.9-3.2); Mean Corpuscular HGB Conc 33.4 g/dl (32-36); Mean Corpuscular Volume 89.7 fl (80-100); Mean Platelet Volume 9.5 fl (7.4-10.4); Monocytes Absolute Auto 0.8 K/mm3 (0.1-0.6); Monocytes Percent Auto 5.3 % (2.6-8.5); Neutrophils Percent Auto 77.9 % (45.5-73.1); Platelet Count Result 291 k/mm3 (150-375); Red Blood Count 3.97 M/mm3 (4.2-5.4); Red Cell Distribution Width 12.8 % (11.5-14.5); White Blood Count 14.1 K/mm3 (4.5-10.0)
[2024-04-19 14:14] LABS: Add Urine Microscopic? YES; Appearance Urine Cloudy (Clear); Bacteria Urine 1+ /hpf; Bilirubin Urine Negative (Negative); Blood Urine Negative (Negative); Color Urine Yellow (Yellow); Glucose Urine UA Negative (Negative); Ketones Urine 1+ mg/dL (Negative); Leukocyte Esterase Ur 1+ LEU/UL (Negative); Nitrate Urine Negative (Negative); Non Pathogenic Casts 0-2; Protein Urine Negative (Negative); RBC Urine 0-2 /hpf (0-2); Specific Grav Ur 1.017 (1.001-1.035); Squamous Epithelial Cell Urine Many /hpf (Few); Urobilinogen Urine 0.2 mg/dL (<2.0); pH Urine 6.5 (5.0-9.0)
[2024-04-19 14:16] VITALS: BP 139/67; PULSE 79
[2024-04-19 14:22] LABS: Alanine Aminotransferase 12 U/L (6-35); Albumin Level 3.7 g/dL (3.5-5.1); Alkaline Phosphatase 108 U/L (38-126); Anion Gap 5 mmol/L (4-12); Aspartate Amino Transferase 14 U/L (14-36); Bilirubin,Total 0.3 mg/dL (0.2-1.3); Blood Urea Nitrogen 6 mg/dL (7-17); Carbon Dioxide 24 mmol/L (22-30); Chloride 105 mmol/L (98-107); Estimated Glomerular Filt Rate > 60; Glucose 93 mg/dL (65-110); Potassium 3.8 mmol/L (3.4-5.0); Sodium 134 mmol/L (137-145); Uric Acid 4.4 mg/dL (2.5-7.5)
[2024-04-19 14:32] VITALS: BP 129/69; PULSE 78
[2024-04-19 14:38] LABS: Creatinine Urine 111.4 mg/dL; Total Protein Urine Random 10 mg/dL; Ur Ttl Prot Creatinine Ratio 0.09 mg/mg (0-0.20)
[2024-04-19 14:46] VITALS: BP 126/62; PULSE 79
[2024-04-19 15:01] VITALS: BP 117/68; PULSE 82
[2024-04-19 15:35] VITALS: BP 129/69; PULSE 82
== END 2024-04-19 15:10 | disposition home or self-care (01) ==
LOC: ANHOBOP 13:45 → ANHOBPP 13:47
PROVIDERS: PCP Family Medicine; Visit Provider Advanced Practice Midwife
DX: O13.9 Gestational [pregnancy-induced] hypertension without significant proteinuria, unspecified trimester (principal); Z3A.00 Weeks of gestation of pregnancy not specified
CPT/HCPCS: 36415; 59025; 80053; 81001; 82570; 84156; 84550; 85025; 99199

== ENCOUNTER 2024-04-21 06:29 | Inpatient (IN) | payer OTHER, SELFPAY ==
[2024-04-21] VITALS (119 sets, daily range): BP systolic 103–158; BP diastolic 41–130; PULSE 70–99; RESP 16; TEMP 36.3–36.8; O2SAT 96–100; BMI 39.6
--- NOTE | 2024-04-21 07:06 | WPDOBADMIT ---
Obstetrics - Admit Note Admission Note: record reviewed. No pertinent additions to the history and/or any subsequent changes in the physical findings that are not consistent with the expected course of the were found. Additions to the history and/or subsequent changes in the physical findings follow. IOL, GHTN, SVE 1.5/70/-2 anterior cervix, AROM small amount of clear,odorless fluid, anticipate vaginal delivery
[2024-04-21 07:51] LABS: Basophils Absolute Auto 0.1 K/mm3 (0.0-0.1); Basophils Percent Auto 0.4 % (0.2-1.2); Eosinophils Absolute Auto 0.1 K/mm3 (0-0.3); Eosinophils Percent Auto 1.2 % (0-4.4); Hematocrit 34.5 % (37.0-47.0); Hemoglobin 11.3 g/dL (12.0-15.0); Immature Granulocyte Absolute 0.38 K/mm3 (0.00-0.031); Immature Granulocyte Percent A 3.2 % (0-0.5); Lymphocytes Absolute Auto 1.66 K/mm3 (0.9-3.2); Mean Corpuscular HGB Conc 32.8 g/dl (32-36); Mean Corpuscular Hemoglobin 29.8 pg (26-34); Mean Platelet Volume 9.9 fl (7.4-10.4); Monocytes Absolute Auto 0.7 K/mm3 (0.1-0.6); Monocytes Percent Auto 5.6 % (2.6-8.5); Neutrophils Percent Auto 75.6 % (45.5-73.1); Platelet Count Result 275 k/mm3 (150-375); Red Blood Count 3.79 M/mm3 (4.2-5.4); Red Cell Distribution Width 12.9 % (11.5-14.5); White Blood Count 11.9 K/mm3 (4.5-10.0)
[2024-04-21] MEDS: LACTATED RINGERS 1,000 ML 125 ML IV CONT ×2 (07:53→11:39)
[2024-04-21] MEDS: OXYTOCIN 30 UNITS/NS 500 ML 30 UNITS/500 ML BAG IV CONT (07:54)
[2024-04-21 07:55] LABS: Alanine Aminotransferase 12 U/L (6-35); Albumin Level 3.4 g/dL (3.5-5.1); Alkaline Phosphatase 101 U/L (38-126); Anion Gap 9 mmol/L (4-12); Aspartate Amino Transferase 14 U/L (14-36); Bilirubin,Total 0.3 mg/dL (0.2-1.3); Blood Urea Nitrogen 5 mg/dL (7-17); Calcium 8.9 mg/dL (8.4-10.2); Carbon Dioxide 21 mmol/L (22-30); Chloride 105 mmol/L (98-107); Estimated Glomerular Filt Rate > 60; Glucose 84 mg/dL (65-110); Potassium 3.7 mmol/L (3.4-5.0); Sodium 135 mmol/L (137-145); Uric Acid 4.6 mg/dL (2.5-7.5)
--- NOTE | 2024-04-21 07:59 | LDADM ---
This patient, Geronimo Cavanaugh, was admitted to Labor/Delivery/Recovery 104 on 04/21/24 at 06:29. Plans for labor, pain management and were discussed with patient. Patient/family oriented to hospital policies and general routines including ID bracelet, bed and alarms, visiting hours, pain management, procedures, bathroom and other care routines, personal items, smoking policy, room service/diet and guest tray routines, security routines, and visiting hours. Patient/Family are encouraged to report perceived risks to care and to ask questions if they do not understand what they are told or what they should do. See OBIX for further documentation.
[2024-04-21 08:34] LABS: HIV 1/2 Ab P24 Ag Result Negative (Negative)
[2024-04-21] MEDS: fentaNYL CITRATE INJ (*CRX) 100 MCG/2 ML VIAL 50 MCG IV PUSH (11:59)
[2024-04-21 14:15] LABS: Rapid Plasma Reagin Non-Reactive (NonReactive)
[2024-04-21] MEDS: SODIUM CHLORIDE 0.9% IV 300 ML 600 ML I-UTERINE (14:45)
[2024-04-21] MEDS: SODIUM CHLORIDE 0.9% IV 1,000 ML 150 ML I-UTERINE (15:18)
--- NOTE | 2024-04-21 16:26 | PM.OBPRVD ---
OB - Vaginal Delivery Note Procedure Delivery date: 04/21/24 Events: Gestational Hypertension Induction method: AROM and Per Pitocin Protocol Delivery monitor: External FHT and Internal Uterine Route of delivery: Episiotomy description: None Laceration Description: None Specimen: No Quantitative Blood Loss (ml): 75 Anesthesia type: Epidural Disposition: Floor Complications: No immediate complications [place] Baby Date of : 04/21/24 Time of : 16:09 Gestational Age by Date: 38 Infant gender: Male Weight (pounds): 7 Weight (ounces): 4 presentation: vertex position: Left Occiput Anterior Placenta delivery description: Spontaneous Cord Vessel Description: 3 Vessels, Nuchal Cord (x1), Reduced and Delayed Cord Clamping score one minute: 7 score five minutes: 8
[2024-04-21] MEDS: OXYTOCIN 30 UNITS/NS 500 ML 30 UNITS/500 ML BAG 125 UNITS IV CONT (16:37)
[2024-04-21] MEDS: IBUPROFEN 600 MG TABLET PO (19:28)
[2024-04-21] MEDS: ACETAMINOPHEN 325 MG TABLET 650 MG PO (19:28)
[2024-04-22 00:06] VITALS: BP 126/62; PULSE 63; RESP 16; TEMP 36.5; O2SAT 99
[2024-04-22 04:40] LABS: Hematocrit 30.8 % (37.0-47.0); Hemoglobin 10.3 g/dL (12.0-15.0)
[2024-04-22] MEDS: ACETAMINOPHEN 325 MG TABLET 650 MG PO ×2 (06:25→19:32)
[2024-04-22] MEDS: IBUPROFEN 600 MG TABLET PO (06:25)
[2024-04-22] MEDS: LEVOTHYROXINE SODIUM 50 MCG TABLET PO (06:26)
--- NOTE | 2024-04-22 07:19 | P.PNAN_ITS ---
Anes - Prog Note Post-Op Date/Time: 04/22/24 07:19 Cardiovascular status: normal Respiratory status: normal Airway patency: baseline Mental status: baseline Post-Op hydration status: normal Vital Signs: Last Vital Signs Temp 36.5 C 04/22/24 00:06 Pulse 63 04/22/24 00:06 Resp 16 04/22/24 00:06 BP 126/62 04/22/24 00:06 Pulse Ox 99 04/22/24 00:06 O2 Del Method Room Air 04/21/24 07:58 Pain Score (VAS): 0/10 I/O: Intake & Output 04/21/24 04/21/24 04/22/24 15:59 23:59 07:59 Intake Total 1000 600 Output Total 175 Balance 1000 425 Laboratory Tests 04/22/24 04:12 04/21/24 07:08 04/21/24 04/21/24 04/22/24 07:08 07:08 04:12 WBC 11.9 H RBC 3.79 L Hgb 11.3 L 10.3 L Hct 34.5 L 30.8 L MCV 91.0 MCH 29.8 MCHC 32.8 RDW 12.9 Plt Count 275 MPV 9.9 Immature Gran % (Auto) 3.2 H Neut % (Auto) 75.6 H Lymph % (Auto) 14.[address] [place] % (Auto) 5.6 Eos % (Auto) 1.2 Baso % (Auto) 0.4 Lymph # (Auto) 1.66 [place] # (Auto) 0.7 H Eos # (Auto) 0.1 Baso # (Auto) 0.1 Abs Immat Gran (auto) 0.38 H Absolute Neuts (auto) 9.0 H Absolute Nucleated RBC 0.000 Nucleated RBC % 0.0 Sodium 135 L Potassium 3.7 Chloride 105 Carbon Dioxide 21 L Anion Gap 9 BUN 5 L Creatinine 0.50 L Estim Creat Clear Calc Not Reportable Estimated GFR > 60 Glucose 84 Uric Acid Cancelled 4.6 Calcium 8.9 Total Bilirubin 0.3 AST 14 ALT 12 Alkaline Phosphatase 101 Total Protein 7.0 Albumin 3.4 L RPR Non-reactive HIV 1&2 Ab/P24 Ag 4thGn Negative Blood Type B Positive Antibody Screen Negative Patient Feedback: Patient satisfied with anesthetic care.No OLGUIN. Sitting up in be 60 degrees.
--- NOTE | 2024-04-22 07:43 | PM.OBPNVD ---
OB - PN: Subj Subjective Date/time seen: 04/22/24 07:43 Interval history: pp day 1 doing well desires d/c home OB - PN: Obj Data Labs 04/22/24 04:12 04/21/24 07:08 Labs: Laboratory Results - last 24 hr 04/21/24 04/22/24 07:08 04:12 WBC 11.9 H RBC 3.79 L Hgb 11.3 L 10.3 L Hct 34.5 L 30.8 L MCV 91.0 MCH 29.8 MCHC 32.8 RDW 12.9 Plt Count 275 MPV 9.9 Immature Gran % (Auto) 3.2 H Neut % (Auto) 75.6 H Lymph % (Auto) 14.0 L [place] % (Auto) 5.6 Eos % (Auto) 1.2 Baso % (Auto) 0.4 Lymph # (Auto) 1.66 [place] # (Auto) 0.7 H Eos # (Auto) 0.1 Baso # (Auto) 0.1 Abs Immat Gran (auto) 0.38 H Absolute Neuts (auto) 9.0 H Absolute Nucleated RBC 0.000 Nucleated RBC % 0.0 Sodium 135 L Potassium 3.7 Chloride 105 Carbon Dioxide 21 L Anion Gap 9 BUN 5 L Creatinine 0.50 L Estim Creat Clear Calc Not Reportable Estimated GFR > 60 Glucose 84 Uric Acid 4.6 Calcium 8.9 Total Bilirubin 0.3 AST 14 ALT 12 Alkaline Phosphatase 101 Total Protein 7.0 Albumin 3.4 L RPR Non-reactive HIV 1&2 Ab/P24 Ag 4thGn Negative Blood Type B Positive Antibody Screen Negative OB - PN A/P Plan day: 1 Plan: routine care and discharge home Time Spent With Patient Time: Total time spent is greater than 50% in coordination of care (as documented) at patient's floor/unit and/or counseling patient: Review of Systems Review of Systems: All systems reviewed & are unremarkable except as noted in HPI and below Exam Const: General: cooperative, healthy appearing and comfortable Resp: Effort & Inspection: normal respiratory effort Cardio: Rate: regular rate GI: Inspection: normal to inspection
--- NOTE | 2024-04-22 07:45 | P.DS_ITS ---
DS: Admitting Diagnosis Discharge Date 04/22/24 Admitting Diagnosis IOL, GHTN OB - DS: Summary OB Procedures : None OB Procedures Intrapartum: Spontaneous Vag Delivery OB Procedures: : None Peripartum Data Laceration Description: None Episiotomy description: None Time Spent with Patient Time attestation: Total time spent providing and/or coordinating discharge services: DS: Data Data Completed and Pending Labs on day of discharge: Labs from last 24 hours 04/22/24 04/21/24 04:12 07:08 WBC 11.9 H RBC 3.79 L Hgb 10.3 L 11.3 L Hct 30.8 L 34.5 L MCV 91.0 MCH 29.8 MCHC 32.8 RDW 12.9 Plt Count 275 MPV 9.9 Immature Gran % (Auto) 3.2 H Neut % (Auto) 75.6 H Lymph % (Auto) 14.0 L [place] % (Auto) 5.6 Eos % (Auto) 1.2 Baso % (Auto) 0.4 Lymph # (Auto) 1.66 [place] # (Auto) 0.7 H Eos # (Auto) 0.1 Baso # (Auto) 0.1 Abs Immat Gran (auto) 0.38 H Absolute Neuts (auto) 9.0 H Absolute Nucleated RBC 0.000 Nucleated RBC % 0.0 Sodium 135 L Potassium 3.7 Chloride 105 Carbon Dioxide 21 L Anion Gap 9 BUN 5 L Creatinine 0.50 L Estim Creat Clear Calc Not Reportable Estimated GFR > 60 Glucose 84 Uric Acid 4.6 Calcium 8.9 Total Bilirubin 0.3 AST 14 ALT 12 Alkaline Phosphatase 101 Total Protein 7.0 Albumin 3.4 L RPR Non-reactive HIV 1&2 Ab/P24 Ag 4thGn Negative Blood Type B Positive Antibody Screen Negative Discharge Plan Discharge Attending physician on discharge: Tramaine Aldana Discharging Clinician: Lovely Greene Patient Disposition: Home, Self-Care Activity: pelvic rest Diet: regular Patient Instructions: Antibiotic Form Stand Alone Forms: General Discharge Information Follow-up/Referrals: Lovely Greene CNM [Certified Nurse Veterinary Microbiologist] - 4 Weeks Discharge Medications: New ibuprofen 600 mg Tablet 600 mg PO Q6H PRN (Reason: Cramping) Qty: 30 0RF Continued ondansetron HCl 4 mg tablet 4 mg PO Q6H PRN (Reason: Nausea And Vomiting) levothyroxine 50 mcg tablet 50 mcg PO DAILY [id number] 50-300-40 mg capsule 1 cap PO DAILY PRN (Reason: Headache) Classic 28 mg iron- 800 mcg Tablet 1 tablet PO DAILY Date of admission: 04/21/24 06:29 Primary Care Provider: Julien España Admitting Provider: Tramaine Aldana Attending physician on admission: Tramaine Aldana Condition: Stable
[2024-04-22 08:20] VITALS: BP 125/75; PULSE 68; RESP 16; TEMP 36.4; O2SAT 100
--- NOTE | 2024-04-22 09:00 | PC.NURSE ---
Mother verbalizes she is able to independently latch with appropriate positioning and alignment. She denies any nipple discomfort and is responsively . Infant is currently meeting outcomes for weight, output, jaundice, blood sugar and feeding frequencies of 8-12 times in 24 hours. Mother declines any additional assistance or education at this time. Mother is encouraged to call for assistance if her infant doesn?t latch, pain with latching, questions or concerns. Mother voiced understanding of information shared along with the mom/baby guide for an additional resource. Reported to the Primary RN.
--- NOTE | 2024-04-22 10:35 | WPDANLDPN2 ---
Anes-Prog Note L&D Date/Time: 04/22/24 10:35 Comfortable throughout: labor and delivery Neuraxial method: epidural Epidural/Spinal procedure site: tender Neuro status: Neuro function grossly intact. Cardiovascular status: normal Respiratory status: normal Airway patency: baseline Mental status: baseline Post-Op hydration status: normal Vital Signs: Last Vital Signs Temp 36.4 C 04/22/24 08:20 Pulse 68 04/22/24 08:20 Resp 16 04/22/24 08:20 BP 125/75 04/22/24 08:20 Pulse Ox 100 04/22/24 08:20 O2 Del Method Room Air 04/21/24 07:58 Pain score (VAS): 06/17 I/O: Intake & Output 04/21/24 04/22/24 04/22/24 23:59 07:59 15:59 Intake Total 600 Output Total 175 Balance 425 Post-procedural complaints: none Patient feedback: Patient satisfied with anesthetic care.
[2024-04-22] MEDS: DOCUSATE SODIUM 100 MG CAPSULE PO (11:29)
[2024-04-22] MEDS: MULTIVIT/MIN/PREN/FOL AC/IRON TABLET 1 TAB PO (11:29)
[2024-04-22 12:52] VITALS: BP 122/67; PULSE 68; RESP 16; TEMP 36.2; O2SAT 100
[2024-04-22 19:23] VITALS: BP 126/80; PULSE 71; RESP 14; TEMP 36.7; O2SAT 99
[2024-04-23 06:40] VITALS: BP 125/73; PULSE 70; RESP 20; TEMP 36.6
[2024-04-23] MEDS: LEVOTHYROXINE SODIUM 50 MCG TABLET PO (06:50)
--- NOTE | 2024-04-23 08:45 | PC.NURSE ---
Introductions were made, then consulted with patient to assess needs related to . Discussed with mother her?plans to feed?her and the?experience so far. Resources provided for inpatient and outpatient services with the feeding sheet, mom/baby guide and name written on the communication board. Mother voiced understanding of information and will call if there is a request for assistance. Reported to the Primary RN.
[2024-04-23] MEDS: MULTIVIT/MIN/PREN/FOL AC/IRON TABLET 1 TAB PO (09:13)
[2024-04-25 10:43] VITALS: BP 131/69; PULSE 73; RESP 18; TEMP 36.9; O2SAT 100
== END 2024-04-23 14:39 | disposition home or self-care (01) | DRG 807 ==
LOC: ANHLDR 06:40 → ANHOB2 19:15
PROVIDERS: Admitting Provider Obstetrics & Gynecology; PCP Family Medicine; Referring Provider Advanced Practice Midwife; Visit Provider Obstetrics & Gynecology
DX: O13.4 Gestational [pregnancy-induced] hypertension without significant proteinuria, complicating childbirth (principal); Z37.0 Single live birth; Z3A.38 38 weeks gestation of pregnancy; O69.81X0 Labor and delivery complicated by cord around neck, without compression, not applicable or unspecified
CPT/HCPCS: 36415; 80053; 84550; 85014; 85018; 85025; 86592; 86703; 86850; 86900; 86901; A9270; G0432; J2590; J2795; J3010; J7030; J7120

== ENCOUNTER 2025-03-24 10:25 | Outpatient (CLI) | payer OTHER, SELFPAY ==
--- NOTE | ~2025-03-24 | US_ITS ---
US soft tissue head and neck INDICATION: Palpable lump right side of the neck. TECHNIQUE: Real-time sonographic images of the thyroid gland were obtained. COMPARISON: No prior studies for comparison. FINDINGS: The right thyroid lobe measures 5.2 x 2.6 x 2.9 cm. The left thyroid lobe measures 4.3 x 1 x 1.4 cm. There is normal echotexture and echogenicity throughout the thyroid gland. In the area palpable concern in the right thyroid lobe there is a solid hypoechoic wider than tall mass measuring 3.2 x 2.4 x 2.5 cm with smooth margins and no echogenic foci, TI-RADS 4. IMPRESSION: 1. Suspicious right thyroid mass measuring up to 3.2 cm. Ultrasound-guided fine-needle aspiration biopsy recommended. Reviewed, dictated and finalized at location O. IMPRESSION: 1. Suspicious right thyroid mass measuring up to 3.2 cm. Ultrasound-guided fin e-needle aspiration biopsy recommended.
== END 2025-03-24 10:26 | disposition home or self-care (01) ==
LOC: MICIMG 10:25
PROVIDERS: PCP Family Medicine; Visit Provider Nurse Practitioner Adult Health
DX: R22.1 Localized swelling, mass and lump, neck (principal)
CPT/HCPCS: 76536